=== PATIENT | female | born 1980 | race Caucasian/White ===

== ENCOUNTER 2016-10-16 20:08 | Emergency (ER) | payer OTHER | END 2016-10-16 23:50 | disposition home or self-care (01) | LOC: ER1 20:08 | DX: O99.89 Other specified diseases and conditions complicating pregnancy, childbirth and the puerperium (principal); R10.30 Lower abdominal pain, unspecified; Z87.891 Personal history of nicotine dependence; Z3A.15 15 weeks gestation of pregnancy | CPT/HCPCS: 36415; 81001; 87210; 99284 ==

== ENCOUNTER 2021-01-18 22:14 | Emergency (ER) | payer OTHER ==
[2021-01-18 22:56] LABS: HEMOGLOBIN 13.2 gm/dl (12.3-15.3); RED BLOOD COUNT 4.56 M/UL (4.00-5.10); WHITE BLOOD COUNT 2.9 K/UL (4.5-11.0)
[2021-01-18 23:33] LABS: BUN/CREATININE RATIO 7 (0-10)
[2021-01-19] MEDS ORDERED: IPRAT-ALBUT 0.5-3 ML INH (00:23)
[2021-01-19] MEDS ORDERED: ZITHROMAX250 MG PO (00:23)
[2021-01-19] MEDS ORDERED: DECADRON6 MG PO (00:23)
== END 2021-01-19 00:45 | disposition home or self-care (01) ==
LOC: ER1 22:14
PROVIDERS: Physician Assistant
DX: U07.1 COVID-19 (principal)
CPT/HCPCS: 71045; 80053; 85025; 93005; 99284

== ENCOUNTER 2021-01-23 20:40 | Inpatient (IN) | payer OTHER ==
[~2021-01-23] VITALS: Ht 162.6 cm; Wt 81.6 kg
[~2021-01-23 20:40] MED LIST: DECADRON6 MG PO; IPRAT-ALBUT 0.5-3 ML INH; ZITHROMAX250 MG PO
[2021-01-23 21:37] LABS: HEMOGLOBIN 13.6 gm/dl (12.3-15.3); RED BLOOD COUNT 4.72 M/UL (4.00-5.10); WHITE BLOOD COUNT 4.7 K/UL (4.5-11.0)
[2021-01-23 22:05] LABS: BUN/CREATININE RATIO 23 (0-10)
[2021-01-24 01:46] LABS: HEMOGLOBIN 12.6 gm/dl (12.3-15.3); RED BLOOD COUNT 4.47 M/UL (4.00-5.10); WHITE BLOOD COUNT 4.1 K/UL (4.5-11.0)
[2021-01-24 02:11] LABS: BUN/CREATININE RATIO 21 (0-10)
[2021-01-24] MEDS ORDERED: EPINEPHRIN0.3 MG/0.3 IM (10:14)
[2021-01-24] MEDS ORDERED: BUPRENORPHIN-N1 EACH SL (10:16)
[2021-01-24] MEDS ORDERED: ESCITALOPRAM OX20 MG PO (10:20)
[2021-01-24] MEDS ORDERED: AZELASTINE205.5 MCG/ (10:20)
[2021-01-24] MEDS ORDERED: FLONASE ALLER15.8 ML (10:21)
[2021-01-24] MEDS ORDERED: LEVOTHYROXINE88 MCG PO (10:22)
[2021-01-24] MEDS ORDERED: FEXOFENADINE H180 MG PO (10:23)
[2021-01-24] MEDS ORDERED: LEVOCETIRIZINE D5 MG PO (10:23)
[2021-01-24] MEDS ORDERED: VITAMIN D3125 MCG PO (10:24)
[2021-01-24] MEDS ORDERED: DAILY VALUE1 EACH PO (10:25)
[2021-01-24] MEDS ORDERED: ELDERBERRY-VIT1 EACH PO (10:26)
[2021-01-24] MEDS ORDERED: IPRAT-ALBUT 0.5-3 ML INH (12:19)
[2021-01-25 03:37] LABS: RED BLOOD COUNT 4.25 M/UL (4.00-5.10); WHITE BLOOD COUNT 3.9 K/UL (4.5-11.0)
[2021-01-25 04:19] LABS: BUN/CREATININE RATIO 35 (0-10)
[2021-01-26 05:39] LABS: HEMOGLOBIN 12.7 gm/dl (12.3-15.3); RED BLOOD COUNT 4.5 M/UL (4.00-5.10); WHITE BLOOD COUNT 4.5 K/UL (4.5-11.0)
[2021-01-26 06:26] LABS: BUN/CREATININE RATIO 26 (0-10)
[2021-01-27 07:49] LABS: HEMOGLOBIN 12.7 gm/dl (12.3-15.3); RED BLOOD COUNT 4.59 M/UL (4.00-5.10)
[2021-01-27 07:50] LABS: WHITE BLOOD COUNT 3.3 K/UL (4.5-11.0)
[2021-01-27 08:11] LABS: BUN/CREATININE RATIO 27 (0-10)
[2021-01-28 03:57] LABS: HEMOGLOBIN 13.4 gm/dl (12.3-15.3); RED BLOOD COUNT 4.75 M/UL (4.00-5.10); WHITE BLOOD COUNT 2.7 K/UL (4.5-11.0)
[2021-01-28 04:35] LABS: BUN/CREATININE RATIO 34 (0-10)
[2021-01-29 03:09] LABS: HEMOGLOBIN 13.2 gm/dl (12.3-15.3); RED BLOOD COUNT 4.59 M/UL (4.00-5.10); WHITE BLOOD COUNT 2.9 K/UL (4.5-11.0)
[2021-01-29 04:10] LABS: BUN/CREATININE RATIO 39 (0-10)
[2021-01-31] MEDS ORDERED: ELIQUIS5 MG PO (11:57)
--- NOTE | 2021-01-31 12:02 | NUR ---
PTS ROOM AIR OXYGEN SATURATION LEVEL IS 84%
== END 2021-01-31 15:53 | disposition home or self-care (01) | DRG 177 ==
LOC: ER1 20:40 → PROG CARE 22:13 → CDU 22:13 → PROG CARE 01-24 18:16
PROVIDERS: Internal Medicine; Internal Medicine Infectious Disease; Student in an Organized Health Care Education/Training Program; ADMIT Internal Medicine
PROC: XW13325 Transfusion of Convalescent Plasma (Nonautologous) into Peripheral Vein, Percutaneous Approach, New Technology Group 5 (ICD-10-PCS; principal; 2021-01-23)
PROC: XW033E5 Introduction of Remdesivir Anti-infective into Peripheral Vein, Percutaneous Approach, New Technology Group 5 (ICD-10-PCS; 2021-01-23)
PROC: B24BZZ4 Ultrasonography of Heart with Aorta, Transesophageal (ICD-10-PCS; 2021-01-23)
PROC: 5A0945A Assistance with Respiratory Ventilation, 24-96 Consecutive Hours, High Flow/Velocity Cannula (ICD-10-PCS; 2021-01-23)
PROC: 3E0333Z Introduction of Anti-inflammatory into Peripheral Vein, Percutaneous Approach (ICD-10-PCS; 2021-01-23)
PROC: 8E0ZXY6 Isolation (ICD-10-PCS; 2021-01-23)
DX: U07.1 COVID-19 (principal); J96.01 Acute respiratory failure with hypoxia; J12.82 Pneumonia due to coronavirus disease 2019; I26.99 Other pulmonary embolism without acute cor pulmonale; E87.2 Acidosis; F17.210 Nicotine dependence, cigarettes, uncomplicated; R74.01 Elevation of levels of liver transaminase levels; N30.10 Interstitial cystitis (chronic) without hematuria; K59.00 Constipation, unspecified; I08.1 Rheumatic disorders of both mitral and tricuspid valves; R00.1 Bradycardia, unspecified; E03.9 Hypothyroidism, unspecified; F41.9 Anxiety disorder, unspecified; Z98.51 Tubal ligation status; Z82.49 Family history of ischemic heart disease and other diseases of the circulatory system
CPT/HCPCS: ECHO; 36415; 36600; 71045; 80048; 80053; 82550; 82553; 82803; 83605; 83735; 83880; 84100; 84439; 84443; 84484; 84702; 85025; 85027; 85379; 85652; 86140; 86900; 86901; 86927; 87040; 93005; 93306; 94640; 94664; 94760; 96374; 96375; 99285; J0456; J0692; J0696; J1100; J1650; J1940; J3370; J7030; J7040; Q9967; U0002

== ENCOUNTER 2021-02-14 14:05 | Emergency (ER) | payer OTHER ==
[~2021-02-14 14:05] MED LIST changes: +AZELASTINE205.5 MCG/; +BUPRENORPHIN-N1 EACH SL; +DAILY VALUE1 EACH PO; +ELDERBERRY-VIT1 EACH PO; +ELIQUIS5 MG PO; +EPINEPHRIN0.3 MG/0.3 IM; +ESCITALOPRAM OX20 MG PO; +FEXOFENADINE H180 MG PO; +FLONASE ALLER15.8 ML; +LEVOCETIRIZINE D5 MG PO; +LEVOTHYROXINE88 MCG PO; +VITAMIN D3125 MCG PO
[2021-02-14 15:00] LABS: HEMOGLOBIN 14.5 gm/dl (12.3-15.3); WHITE BLOOD COUNT 6.6 K/UL (4.5-11.0)
[2021-02-14 15:21] LABS: BUN/CREATININE RATIO 16 (0-10)
== END 2021-02-14 17:51 | disposition home or self-care (01) ==
LOC: ER1 14:05
PROVIDERS: Physician Assistant Medical
DX: R50.9 Fever, unspecified (principal); R06.02 Shortness of breath; E03.9 Hypothyroidism, unspecified; Z79.01 Long term (current) use of anticoagulants; Z86.711 Personal history of pulmonary embolism
CPT/HCPCS: 71045; 80053; 85025; 99285